=== PATIENT | male | born 1940 | race Caucasian/White ===

== ENCOUNTER 2018-04-27 16:06 | Emergency (ER) | payer MEDICARE, SELFPAY ==
[2018-04-27 16:08] VITALS: BP 125/55; PULSE 74; RESP 16; TEMP 36.2; O2SAT 97; BMI 39.7
[2018-04-27 17:05] LABS: Base Excess 16 mmol/L (-2 to +2); Bicarbonate 41.2 mmol/L (22-26); Blood Gas Specimen Type ART; O2 Delivery Device Nasal Can; PO2 71 mmHG (75-100); SITE R Radial; SO2 93 % (95-99); Time Given 1642; Total Carbon Dioxide 43 mmol/L; pCO2 71.2 mmHg (35-45); pH 7.37 (7.35-7.45)
[2018-04-27 17:30] VITALS: PULSE 74; RESP 14; RESP 19; O2SAT 19
[2018-04-27 17:37] LABS: Absolute Lymphocyte Count 1.93 X10^3/ul (0.83-4.51); Absolute Neutrophil Count 2.9 X10^3/uL (2.0-7.7); Basophil# 0.01 X10^3/uL; Basophil% 0.2 % (0-1); Eosinophil# 0.14 X10^3/uL; Eosinophils% 2.7 % (0-5); Hematocrit 38.1 % (40-54); Hemoglobin 12.6 g/dl (13.0-16.5); Lymphocyte # 1.93 X10^3/ul (4.0); Lymphocyte % 36.6 % (19-41); Mean Corp Hgb Conc 33.1 g/gl (32-36); Mean Corpuscular Hgb 31.2 pg (27.0-32.0); Mean Corpuscular Volume 94.3 fL (80-94); Mean Platelet Vol. 11.7 fl (6.2-12.0); Monocyte# 0.23 X10^3/uL; Monocyte% 4.4 % (0-10); Neutrophil # 2.94 X10^3/uL (2.7-7.7); Neutrophil % 55.5 % (47-70); Platelet Count 89 K/mm3 (150-450); RBC Distribution Width CV 13.6 % (11.6-14.6); Red Blood Count 4.04 M/mm3 (4.6-6.2); White Blood Count 5.3 K/mm3 (4.4-11.0)
[2018-04-27 17:38] LABS: POSITIVE COUNT NO; POSITIVE DIFFERENTIAL NO; POSITIVE MORPHOLOGY NO
[2018-04-27 17:50] LABS: Anion Gap 3 (5-15); BUN 17 mg/dL (7-18); BUN/Creat Ratio 14.3 RATIO (10-20); Chloride 97 mmol/L (98-107); Creatinine, Serum 1.19 mg/dL (0.70-1.30); EST Glomerular Filtration Rate 63 mL/min (>60); Est Glom Filt Rate - Afr Amer 76 mL/min (>60); Estimated Creatinine Clearance 52.81 ml/min; Glucose 283 mg/dL (74-106); Potassium 3.6 mmol/L (3.5-5.1); Sodium Level 141 mmol/L (136-145)
--- NOTE | 2018-04-27 18:17 | ED.DCSUM_ITS ---
- ER Visit Summary Date of Service: 04/27/18 Chief Complaint: Lethargic History of Present Illness: The patient is a 78 M who was transferred to [facility] yesterday for IV antibiotics. Nurses noted today that he seemed more tired than he had been. On arrival to the emergency department patient is awake and answering questions appropriately. However, he does appears slightly groggy. Review of systems: General: No fever, chills, cold sweats. Cardiovascular: No chest pain, palpitations. Respiratory: No cough, shortness of breath, dyspnea on exertion. Gastrointestinal: No abdominal pain, nausea, vomiting, diarrhea, melena, or hematochezia. Genitourinary: No dysuria, frequency, hematuria. Skin: No rash. Neuro: No headache, numbness, weakness. Physical Examination: Vitals: Stable. Afebrile. General: Well-nourished and well-developed. Head: Normocephalic atraumatic. Neck: Supple, no lymphadenopathy. No JVD. Nontender. Cardiovascular: Regular rate and rhythm. 2 out of 6 systolic murmur. Respiratory: No respiratory distress. Clear to auscultation bilaterally. Abdominal: Soft, nontender, nondistended, normal bowel sounds. No guarding, rebound, or peritoneal signs. Back: Nontender. Extremities: Nontender, 1+ pitting edema lower extremities bilaterally with chronic venous stasis changes. He has an approximately 1 cm ulcer on the plantar surface of his left third toe. There is no surrounding erythema, induration, or drainage.. Skin: Normal color, no rash. Neurologic: Alert and oriented ?3. Cranial nerves II through XII are intact. Normal strength and sensation. Psych: Normal affect. Test Results: ABG shows a pH of 7.37 with a CO2 of 71.2, O2 of 71, and bicarb of 41.2. Chem-7 is more for chloride of 97, CO2 41, glucose 283, BUN 3, calcium 8.0. CBC is marked for an H&H 12.6 and 38.1, platelets of 89. Emergency Department Course and Treatment: Patient was placed on nasal BiPAP. Approximately 3 hours later his CO2 on a venous blood gas was 69.8. Patient is much more awake and cantankerous. Treatment Plan: Patient will be discharged back to the custodial. We have discussed the fact him that he is a CO2 retainer and that his pulse ox should be anywhere from 91-93% to prevent this lethargy. Return to the emergency department for any worsening symptoms. Disposition: To home in improved and stable condition. Impression: 1. Hypercapnia. This note was generated with [employer] dictation software. It may contain incorrect words, spelling, and punctuation that were not noted in review of the chart prior to signing ED Disposition - Plan for ED Patient: Disposition: Correction Facility Chief Complaint: General Illness Instructions: Carbon Dioxide Blood Referrals: Good Fuentes MD [STAFF PHYSICIAN] - 1-2 Days if not improving
[2018-04-27 18:18] VITALS: BP 121/65; PULSE 75; RESP 18; O2SAT 93
[2018-04-27 20:09] VITALS: BP 119/71; O2SAT 92
[2018-04-27 20:39] VITALS: BP 117/79; PULSE 88; RESP 22; O2SAT 92
--- NOTE | 2018-04-27 20:41 | NURSING ---
attempted to call report. no answer
--- NOTE | 2018-04-27 20:43 | NURSING ---
report called to dianna. informed rn not to have pt po above 92 and becarefull of turning up o2
[2018-04-27 21:25] LABS: O2 Delivery Device NC; SITE LR; Time Given 2009; VBG pH 7.41 (7.32-7.42)
[2018-04-27 21:26] LABS: VBG BASE EXCESS 19 mmol/L (-1.0-3.5); VBG Bicarbonate 44 mmol/L (22-26); VBG PO2 22 mmHg (25-40); VBG SO2 33 % (50-70); VBG pCO2 69.8 mmHg (41-51)
== END 2018-04-27 21:32 | disposition skilled nursing facility (03) ==
PROVIDERS: Emergency Provider Emergency Medicine; Family Provider Family Medicine; PCP Family Medicine
DX: R06.89 Other abnormalities of breathing (principal); I87.8 Other specified disorders of veins; R60.0 Localized edema; L97.529 Non-pressure chronic ulcer of other part of left foot with unspecified severity; R01.1 Cardiac murmur, unspecified; E66.9 Obesity, unspecified; K21.9 Gastro-esophageal reflux disease without esophagitis; E11.22 Type 2 diabetes mellitus with diabetic chronic kidney disease; I12.9 Hypertensive chronic kidney disease with stage 1 through stage 4 chronic kidney disease, or unspecified chronic kidney disease; N18.9 Chronic kidney disease, unspecified; E78.00 Pure hypercholesterolemia, unspecified; I73.9 Peripheral vascular disease, unspecified; D69.6 Thrombocytopenia, unspecified; Z79.82 Long term (current) use of aspirin; Z79.84 Long term (current) use of oral hypoglycemic drugs; Z79.899 Other long term (current) drug therapy
CPT/HCPCS: 36600; 80048; 82803; 85025; 94002; 99285